=== PATIENT | female | born 1995 | race Caucasian/White ===

== ENCOUNTER 2019-02-11 14:20 | Emergency (ER) | payer MEDICAID, OTHER ==
[~2019-02-11 14:20] MED LIST: IRON PO; PREN1TAB80 PO
[2019-02-11] MEDS ORDERED: ONDANSETRON HCL 4 MG/2 ML VIAL ONE (15:13)
[2019-02-11 15:16] LABS: BASOPHILS % (AUTO) 0.3 % (0.0-5.0); EOSINOPHILS % (AUTO) 0.1 % (0.0-8.0); HEMATOCRIT 47.6 % (36-48); LYMPHOCYTES % (AUTO) 8.7 % (21.0-51.0); MEAN CORPUSCULAR HEMOGLOBIN 30.4 pg (27.0-33.0); MEAN CORPUSCULAR HGB CONC 34.4 g/dL (32.0-36.0); MEAN CORPUSCULAR VOLUME 88.2 fL (79-99); NEUTROPHILS % (AUTO) 84.9 % (40.0-77.0); NUCLEATED RED BLOOD CELLS 0.1 % (0.0-0.19); PLATELET COUNT (AUTO) 199 K/uL (130-400); RED BLOOD CELL COUNT(AUTO) 5.39 MIL/uL (4.00-5.50); RED CELL DISTRIBUTION WIDTH 12.2 % (11.0-15.5); WHITE BLOOD COUNT (AUTO) 8.3 K/uL (4.8-10.8)
[2019-02-11 15:37] LABS: ALBUMIN 4.8 g/dL (3.5-5.0); BILIRUBIN,TOTAL 1.1 mg/dL (0.2-1.0); CREATININE 1.1 mg/dL (0.5-1.5); TOTAL PROTEIN, SERUM 8.6 g/dL (6.0-8.3)
[2019-02-11 15:40] LABS: POTASSIUM 2.9 mmol/L (3.5-5.1)
[2019-02-11 16:20] LABS: APPEARANCE,URINE Clear (CLEAR); BILIRUBIN,URINE Negative (NEGATIVE); COLOR,URINE Dark Yellow (YELLOW); GLUCOSE, URINE (UA) Negative (NEGATIVE); KETONES,URINE >=160 mg/dL (NEGATIVE); LEUKOCYTE ESTERASE ,URINE Trace (NEGATIVE); NITRATE,URINE Negative (NEGATIVE); OCCULT BLOOD,URINE Trace (NEGATIVE); PROTEIN,URINE POS 1+ (NEGATIVE)
[2019-02-11 16:24] LABS: HCG,QUAL RESULT NEGATIVE (NEGATIVE)
[2019-02-11] MEDS ORDERED: KETOROLAC TROMETHAMINE 30MG/ML ONE (16:24)
[2019-02-11] MEDS ORDERED: FAMOTIDINE/PF 20 MG/2 ML VIAL IV ONE (16:24)
[2019-02-11 16:27] LABS: SQUAMOUS EPITHELIAL CELL,UR 50-100 /HPF (0-2)
[2019-02-11 16:28] LABS: MUCUS,URINE Many LPF (None Seen)
[2019-02-11 16:29] LABS: BACTERIA,URINE Moderate /HPF (None Seen)
[2019-02-11] MEDS ORDERED: LIDOCAINE HCL 2% VISCOUS 15 ML UDCUP ONE (17:24)
[2019-02-11] MEDS ORDERED: MAG HYDROX/AL HYDROX/SIMETH ES 30 ML SUSP UDCUP ONE (17:25)
[2019-02-11] MEDS ORDERED: POTASSIUM CHLORIDE 10% ELIXIR 20 MEQ/15 ML UDCUP ONE (18:02)
[2019-02-11] MEDS ORDERED: MORPHINE SULFATE 4 MG/1ML SYG ONE (18:02)
[2019-02-11 19:13] LABS: AMPHET/METH SCREEN,URINE NEGATIVE (NEGATIVE); BARBITURATE SCREEN, URINE NEGATIVE (NEGATIVE); BENZODIAZEPINES SCREEN,URINE NEGATIVE (NEGATIVE); CANNABINOID SCREEN,URINE POSITIVE (NEGATIVE); COCAINE SCREEN,URINE NEGATIVE (NEGATIVE); OPIATE SCREEN,URINE NEGATIVE (NEGATIVE); PHENCYCLIDINE SCREEN,URINE NEGATIVE (NEGATIVE)
== END 2019-02-11 19:19 | disposition home or self-care (01) ==
LOC: EDH 14:20
DX: K21.9 Gastro-esophageal reflux disease without esophagitis (principal)
CPT/HCPCS: 36415; 74176; 76705; 80053; 80305; 81001; 81025; 82150; 83690; 84702; 85025; 96361; 96374; 96375; 99284; J1885; J2270; J2405; J3490